=== PATIENT | female | born 1990 | race African-American/Black ===

== ENCOUNTER → 2019-05-03 | Emergency (ER) | payer SELFPAY ==
[~2019-05-03] VITALS: Ht 165.1 cm; Wt 63.5 kg
[~2019-05-03] MED LIST: IBUPROFEN 600 MG TABLET PO ONE
[2019-05-03 12:56] VITALS: BP 118/80
== END | disposition home or self-care (01) ==
LOC: ER 12:51 → EDSEX 12:51
DX: S29.8XXA Other specified injuries of thorax, initial encounter (principal); F32.9 Major depressive disorder, single episode, unspecified; F41.9 Anxiety disorder, unspecified; Y08.89XA Assault by other specified means, initial encounter; Y93.89 Activity, other specified; Y92.89 Other specified places as the place of occurrence of the external cause; Y99.8 Other external cause status
CPT/HCPCS: 72050-TC; 72070-TC; 84703-TC

== ENCOUNTER 2019-06-03 12:53 | Emergency (ER) | payer MEDICAID ==
[~2019-06-03] VITALS: Ht 165.1 cm; Wt 64.0 kg
[2019-06-03 12:55] VITALS: BP 129/92
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
--- NOTE | 2019-06-03 13:35 | NUR ---
MARGARET GAVE INFO THEY ARE FROM [place] [id number].
[2019-06-03] MEDS ORDERED: AMOX/CLAVULANATE 875 MG TABLET ONE (14:27)
[2019-06-03] MEDS ORDERED: ACETAMINOPHEN ES 500 MG TABLET ONE (14:27)
[2019-06-03] MEDS ORDERED: TDAP [DIPH/PERTUSSIS/TET] 0.5 ML VIAL IM ONE (14:28)
[2019-06-03] MEDS: ACETAMINOPHEN 325 MG TABLET PO ONE (14:39)
[2019-06-03] MEDS: AMOX/CLAVULANATE 875 MG TABLET PO ONE (14:39)
[2019-06-03] MEDS: TDAP [DIPH/PERTUSSIS/TET] 0.5 ML VIAL IM ONE (14:41)
== END 2019-06-03 15:43 | disposition home or self-care (01) ==
LOC: ER 12:59
DX: S40.812A Abrasion of left upper arm, initial encounter (principal); S40.811A Abrasion of right upper arm, initial encounter; S80.812A Abrasion, left lower leg, initial encounter; S80.811A Abrasion, right lower leg, initial encounter; S09.8XXA Other specified injuries of head, initial encounter; Y04.1XXA Assault by human bite, initial encounter; Y93.89 Activity, other specified; Y92.89 Other specified places as the place of occurrence of the external cause; Y99.8 Other external cause status
CPT/HCPCS: 70450-TC; 90715